=== PATIENT | male | born 1995 | race Hispanic/Latino ===

== ENCOUNTER 2017-04-27 23:47 | Observation (INO) | payer BC ==
[~2017-04-27] VITALS: Ht 160 cm; Wt 123.4 kg
[2017-04-28] MEDS ORDERED: SODIUM CHLORIDE 0.9% 1000ML 1,000 ML IV ONE ×2 (00:32→05:40)
[2017-04-28 01:08] LABS: BASOPHILS % (AUTO) 0.6 % (0.0-5.0); EOSINOPHILS % (AUTO) 0.9 % (0.0-8.0); HEMATOCRIT 48.5 % (42-54); MEAN CORPUSCULAR HEMOGLOBIN 29.6 pg (27.0-33.0); MEAN CORPUSCULAR HGB CONC 32.8 g/dL (32.0-36.0); MEAN CORPUSCULAR VOLUME 90.2 fL (79-99); MONOCYTES % (AUTO) 13.6 % (3.0-13.0); NEUTROPHILS % (AUTO) 72.9 % (40.0-77.0); PLATELET COUNT (AUTO) 226 K/uL (130-400); RED BLOOD CELL COUNT(AUTO) 5.38 MIL/uL (4.50-6.20); WHITE BLOOD COUNT (AUTO) 10.3 K/uL (4.8-10.8)
[2017-04-28 01:09] LABS: INFLUENZA TYPE A NEGATIVE FOR TYPE A (NEG); INFLUENZA TYPE B NEGATIVE FOR TYPE B (NEG)
[2017-04-28 01:28] LABS: CREATININE 1.2 mg/dL (0.5-1.5); POTASSIUM 3.2 mmol/L (3.5-5.1)
[2017-04-28 03:20] LABS: APPEARANCE,URINE Clear (CLEAR); BILIRUBIN,URINE Negative (NEGATIVE); COLOR,URINE Dark Yellow (YELLOW); GLUCOSE, URINE (UA) Negative (NEGATIVE); KETONES,URINE 40 mg/dL (NEGATIVE); LEUKOCYTE ESTERASE ,URINE Negative (NEGATIVE); NITRATE,URINE Negative (NEGATIVE); OCCULT BLOOD,URINE Negative (NEGATIVE); PH,URINE 5.5 (5.0-8.0); PROTEIN,URINE Negative (NEGATIVE)
[2017-04-28] MEDS ORDERED: LIDOCAINE HCL 1% 20 ML VIAL ONE (05:09)
[2017-04-28 07:25] LABS: APPEARANCE,CSF CLEAR (CLEAR); COLOR,CSF PINK (COLORLESS); CSF TUBE NUMBER 1; WHITE BLOOD CELL1,CSF 0 CMM (0-5)
[2017-04-28 07:26] LABS: APPEARANCE2,CSF CLEAR (CLEAR); COLOR2,CSF COLORLESS (COLORLESS); CSF 2ND TUBE NUMBER 3; RED BLOOD CELL1,CSF 595 CMM (0-0)
[2017-04-28 07:29] LABS: GLUCOSE, CSF 62 mg/dL (40-70); TOTAL PROTEIN, CSF 33 mg/dL (15-45)
[2017-04-28 07:30] LABS: CSF TOTAL VOLUME 3.5 mL
[2017-04-28] MEDS ORDERED: KETOROLAC TROMETHAMINE 30MG/ML ONE (08:11)
[2017-04-28] MEDS ORDERED: GUAIFENESIN-DM 200/20 MG 10 ML PO PRN (08:45)
[2017-04-28] MEDS ORDERED: ACETAMINOPHEN 325 MG TAB PO PRN (08:45)
[2017-04-28] MEDS ORDERED: MAG HYDROX/AL HYDROX/SIMETH ES 30 ML SUSP UDCUP PO PRN (08:45)
[2017-04-28] MEDS ORDERED: ONDANSETRON HCL 4 MG/2 ML VIAL IV PRN (08:45)
[2017-04-28] MEDS ORDERED: LACTULOSE 20 GM/30 ML UDCUP PO PRN (08:45)
[2017-04-28] MEDS ORDERED: PANTOPRAZOLE 40 MG/VIAL IVP SCH (09:00)
[2017-04-28] MEDS ORDERED: OSELTAMIVIR PHOSPHATE 75 MG CAP ONE (09:35)
[2017-04-28] MEDS ORDERED: POTASSIUM CHLORIDE 20 MEQ ERTAB PO ONE (09:55)
[2017-04-28] MEDS ORDERED: OSELTAMIVIR PHOSPHATE 75 MG CAP PO SCH (10:01)
[2017-04-28] MEDS ORDERED: ACETAMINOPHEN-CODEINE 300/30MG TAB ONE (14:07)
[2017-04-28 20:42] VITALS: BP 143/88
[2017-04-28] MEDS: SODIUM CHLORIDE 0.9% 1000ML 1,000 ML IV SCH (21:56)
[2017-04-28] MEDS: OSELTAMIVIR PHOSPHATE 75 MG CAP PO SCH (21:56)
[2017-04-28] MEDS: MORPHINE SULFATE 2 MG/ML 1ML SYG IVP PRN (21:59)
[2017-04-28] MEDS ORDERED: FLUD0.1T2 PO (22:19)
[2017-04-28] MEDS ORDERED: PRED5TAB PO (22:19)
[2017-04-28 23:00] VITALS: BP 118/53
[2017-04-29 03:00] VITALS: BP 105/52
[2017-04-29 04:37] LABS: HEMATOCRIT 39.5 % (42-54); MEAN CORPUSCULAR HEMOGLOBIN 29.8 pg (27.0-33.0); MEAN CORPUSCULAR HGB CONC 34.1 g/dL (32.0-36.0); MEAN CORPUSCULAR VOLUME 87.3 fL (79-99); PLATELET COUNT (AUTO) 166 K/uL (130-400); RED BLOOD CELL COUNT(AUTO) 4.52 MIL/uL (4.50-6.20); RED CELL DISTRIBUTION WIDTH 13.7 % (11.0-15.5)
[2017-04-29 05:04] LABS: CREATININE 0.8 mg/dL (0.5-1.5); POTASSIUM 3.4 mmol/L (3.5-5.1)
[2017-04-29] MEDS: MORPHINE SULFATE 2 MG/ML 1ML SYG IVP PRN ×3 (05:44→20:48)
[2017-04-29 07:00] VITALS: BP 125/61
[2017-04-29] MEDS: OSELTAMIVIR PHOSPHATE 75 MG CAP PO SCH ×2 (08:27→20:47)
[2017-04-29] MEDS: PANTOPRAZOLE SODIUM 40 MG TABLET.DR PO SCH (08:27)
[2017-04-29] MEDS: SODIUM CHLORIDE 0.9% 1000ML 1,000 ML IV SCH ×2 (08:28→20:48)
[2017-04-29] MEDS: ACETAMINOPHEN-CODEINE 300/30MG TAB PO PRN (08:28)
[2017-04-29 10:55] VITALS: BP 118/83
[2017-04-29] MEDS: ACETAMINOPHEN 325 MG TAB PO PRN ×2 (11:01→20:47)
[2017-04-29] MEDS ORDERED: GADOBENATE DIMEGLUMINE 20 ML IV ONE (12:31)
[2017-04-29] MEDS: DOXYCYCLINE 100MG+NS 250ML 250 ML IV SCH ×2 (13:14→23:19)
[2017-04-29] MEDS: PROMETHAZINE HCL 25 MG/ML 1ML AMPULE IM SCH (13:14)
[2017-04-29 15:15] VITALS: BP 126/54
[2017-04-29 15:29] LABS: AMPHET/METH SCREEN,URINE NEGATIVE (NEGATIVE); BARBITURATE SCREEN, URINE NEGATIVE (NEGATIVE); BENZODIAZEPINES SCREEN,URINE NEGATIVE (NEGATIVE); CANNABINOID SCREEN,URINE NEGATIVE (NEGATIVE); COCAINE SCREEN,URINE NEGATIVE (NEGATIVE); OPIATE SCREEN,URINE POSITIVE (NEGATIVE); PHENCYCLIDINE SCREEN,URINE NEGATIVE (NEGATIVE)
[2017-04-29 19:56] VITALS: BP 132/65
[2017-04-29] MEDS: PREDNISONE 5 MG TABLET PO SCH (20:21)
[2017-04-29 23:52] VITALS: BP 119/72
[2017-04-30 03:43] VITALS: BP 110/68
[2017-04-30 07:18] VITALS: BP 90/54
[2017-04-30] MEDS: PANTOPRAZOLE SODIUM 40 MG TABLET.DR PO SCH (07:59)
[2017-04-30] MEDS: PREDNISONE 5 MG TABLET PO SCH (07:59)
[2017-04-30] MEDS: SODIUM CHLORIDE 0.9% 1000ML 1,000 ML IV SCH ×2 (08:00→10:33)
[2017-04-30] MEDS: OSELTAMIVIR PHOSPHATE 75 MG CAP PO SCH (08:00)
[2017-04-30] MEDS ORDERED: FLUDROCORTISONE ACETATE 0.1 MG TABLET PO SCH (09:00)
[2017-04-30 11:01] VITALS: BP 110/72
[2017-04-30] MEDS ORDERED: OSEL75 PO (11:07)
[2017-04-30] MEDS ORDERED: DOXY100T2 PO (11:07)
[2017-04-30] MEDS: PROMETHAZINE HCL 25 MG/ML 1ML AMPULE IM SCH (11:30)
[2017-04-30] MEDS: ACETAMINOPHEN-CODEINE 300/30MG TAB PO PRN (12:24)
[2017-05-06 13:16] LABS: ROCKY MT SPOTTED FEVER IGG <1:64 (Neg:<1:64); TYPHUS FEVER AB IGG <1:64 (Neg:<1:64)
== END 2017-04-30 13:05 | disposition home or self-care (01) ==
LOC: EDH 23:47 → EDHIP 04-28 08:33 → 3CH 04-28 19:31
PROVIDERS: ADMIT Family Medicine; ATTEND Family Medicine
DX: R51 Headache (principal); B34.9 Viral infection, unspecified
CPT/HCPCS: 36415 ×3; 70450; 70544; 70547; 70551; 71010; 76705; 80048; 80053; 80305; 81003; 82945; 84157; 85025; 85027; 86000; 86308; 87040 ×2; 87071; 87147; 87205; 87252; 87804 ×2; 87880; 89051 ×2; 96365; 96366; 96372; 96375; 96376; 99285; A9577; C9113; G0378 ×53; J1885; J2550; J3490; J7030 ×6; J7512

== ENCOUNTER 2017-05-01 14:47 | Emergency (ER) | payer BC ==
[~2017-05-01 14:47] MED LIST: DOXY100T2 PO; FLUD0.1T2 PO; OSEL75 PO; PRED5TAB PO
[2017-05-01] MEDS ORDERED: ACETAMINOPHEN EXTRA STRENGTH 500 MG TABLET ONE (15:10)
[2017-05-01] MEDS ORDERED: DIAZEPAM 5 MG TABLET ONE (15:11)
[2017-05-01 15:14] LABS: APPEARANCE,URINE SL CLOUDY (CLEAR); BILIRUBIN,URINE NEGATIVE (NEGATIVE); COLOR,URINE YELLOW (YELLOW); GLUCOSE, URINE (UA) NEGATIVE (NEGATIVE); KETONES,URINE NEGATIVE (NEGATIVE); LEUKOCYTE ESTERASE ,URINE NEGATIVE (NEGATIVE); NITRATE,URINE NEGATIVE (NEGATIVE); OCCULT BLOOD,URINE NEGATIVE (NEGATIVE); PH,URINE 8.5 (5.0-8.0); PROTEIN,URINE NEGATIVE (NEGATIVE)
[2017-05-01 15:22] LABS: AMPHET/METH SCREEN,URINE NEGATIVE (NEGATIVE); BARBITURATE SCREEN, URINE NEGATIVE (NEGATIVE); BENZODIAZEPINES SCREEN,URINE NEGATIVE (NEGATIVE); CANNABINOID SCREEN,URINE NEGATIVE (NEGATIVE); COCAINE SCREEN,URINE NEGATIVE (NEGATIVE); OPIATE SCREEN,URINE NEGATIVE (NEGATIVE); PHENCYCLIDINE SCREEN,URINE NEGATIVE (NEGATIVE)
[2017-05-01 15:28] LABS: AMORPHOUS SEDIMENT,UR Few /LPF (None Seen); BACTERIA,URINE Few /HPF (None Seen); MUCUS,URINE Few LPF (None Seen); RBC,URINE None Seen /HPF (0-1); SQUAMOUS EPITHELIAL CELL,UR 0-2 /LPF (0-2); WBC,URINE 0-1 /HPF (0-1)
== END 2017-05-01 16:20 | disposition home or self-care (01) ==
LOC: EDH 14:47
DX: R51 Headache (principal)
CPT/HCPCS: 80305; 81001

== ENCOUNTER 2018-03-20 21:40 | Inpatient (IN) | payer BC, OTHER ==
[~2018-03-20] VITALS: Ht 160 cm; Wt 127.5 kg
[2018-03-20 22:02] LABS: APPEARANCE,URINE CLEAR (CLEAR); BILIRUBIN,URINE NEGATIVE (NEGATIVE); COLOR,URINE YELLOW (YELLOW); GLUCOSE, URINE (UA) NEGATIVE (NEGATIVE); KETONES,URINE NEGATIVE (NEGATIVE); LEUKOCYTE ESTERASE ,URINE NEGATIVE (NEGATIVE); NITRATE,URINE NEGATIVE (NEGATIVE); OCCULT BLOOD,URINE NEGATIVE (NEGATIVE); PH,URINE 5.5 (5.0-8.0); PROTEIN,URINE NEGATIVE (NEGATIVE); UROBILINOGEN,URINE 0.2 mg/dL (0.2-1.0)
[2018-03-20 22:09] LABS: AMPHET/METH SCREEN,URINE NEGATIVE (NEGATIVE); BARBITURATE SCREEN, URINE NEGATIVE (NEGATIVE); BENZODIAZEPINES SCREEN,URINE NEGATIVE (NEGATIVE); CANNABINOID SCREEN,URINE NEGATIVE (NEGATIVE); COCAINE SCREEN,URINE NEGATIVE (NEGATIVE); OPIATE SCREEN,URINE NEGATIVE (NEGATIVE); PHENCYCLIDINE SCREEN,URINE NEGATIVE (NEGATIVE)
[2018-03-20 22:11] LABS: BASOPHILS % (AUTO) 0.5 % (0.0-5.0); EOSINOPHILS % (AUTO) 2.4 % (0.0-8.0); HEMATOCRIT 47.3 % (42-54); LYMPHOCYTES % (AUTO) 14.2 % (21.0-51.0); MEAN CORPUSCULAR HEMOGLOBIN 29.5 pg (27.0-33.0); MEAN CORPUSCULAR HGB CONC 34.7 g/dL (32.0-36.0); MONOCYTES % (AUTO) 5.2 % (3.0-13.0); NEUTROPHILS % (AUTO) 77.7 % (40.0-77.0); PLATELET COUNT (AUTO) 214 K/uL (130-400); RED BLOOD CELL COUNT(AUTO) 5.56 MIL/uL (4.50-6.20); RED CELL DISTRIBUTION WIDTH 13.3 % (11.0-15.5); WHITE BLOOD COUNT (AUTO) 11.3 K/uL (4.8-10.8)
[2018-03-20 22:24] LABS: CREATININE 0.9 mg/dL (0.5-1.5); POTASSIUM 3.4 mmol/L (3.5-5.1)
[2018-03-20 22:28] LABS: ALBUMIN 3.7 g/dL (3.5-5.0); BILIRUBIN,TOTAL 0.8 mg/dL (0.2-1.0)
[2018-03-20] MEDS ORDERED: SODIUM CHLORIDE 0.9% 1000ML 1,000 ML IV ONE (22:33)
[2018-03-20] MEDS ORDERED: ACETAMINOPHEN EXTRA STRENGTH 500 MG TABLET ONE (22:33)
[2018-03-20 22:58] LABS: RAPID GROUP A STREP NEGATIVE (NEGATIVE)
[2018-03-21] VITALS (7 sets, daily range): BP systolic 113–128; BP diastolic 55–67
[2018-03-21] MEDS ORDERED: SODIUM CHLORIDE 0.9% 1000ML 1,000 ML IV ONE (00:31)
[2018-03-21] MEDS ORDERED: VANCOMYCIN 1GM+NS 250ML 500 ML IV ONE (00:41)
[2018-03-21] MEDS: SODIUM CHLORIDE 0.9% 1000ML 1,000 ML IV SCH ×4 (00:51→20:51)
[2018-03-21] MEDS ORDERED: DiphenhydrAMINE HCL 50 MG/ML VIAL ONE (01:00)
[2018-03-21] MEDS ORDERED: VANCOMYCIN PROTOCOL PER PHARMACY IV PRN (01:00)
[2018-03-21] MEDS ORDERED: LIDOCAINE HCL-MPF 1% 2ML VIAL IVP PRN ×2 (01:00→17:15)
[2018-03-21] MEDS ORDERED: ONDANSETRON HCL MDV 20ML 2 MG/ML VIAL IV PRN (01:00)
[2018-03-21] MEDS ORDERED: MORPHINE SULFATE 2 MG/ML 1ML SYG IVP PRN (01:00)
[2018-03-21] MEDS ORDERED: MAGNESIUM 2GM PREMIX 50ML 50 ML IV PRN (01:00)
[2018-03-21] MEDS ORDERED: POTASSIUM CHLORIDE 20MEQ/100ML 100 ML IV PRN ×2 (01:00→17:15)
[2018-03-21 01:43] LABS: CRP QUANTITATIVE 19.3 mg/L (0.00-9.0); MAGNESIUM 1.6 mg/dL (1.80-2.40)
[2018-03-21] MEDS: METRONIDAZOLE 500MG/100ML BAG 100 ML IV SCH ×3 (03:54→17:07)
[2018-03-21 05:34] LABS: BASOPHILS % (AUTO) 0.4 % (0.0-5.0); EOSINOPHILS % (AUTO) 3.3 % (0.0-8.0); HEMATOCRIT 39.3 % (42-54); LYMPHOCYTES % (AUTO) 25.4 % (21.0-51.0); MEAN CORPUSCULAR HEMOGLOBIN 28.6 pg (27.0-33.0); MEAN CORPUSCULAR VOLUME 84.1 fL (79-99); MONOCYTES % (AUTO) 10.4 % (3.0-13.0); NEUTROPHILS % (AUTO) 60.5 % (40.0-77.0); NUCLEATED RED BLOOD CELLS 0.1 % (0.0-0.19); PLATELET COUNT (AUTO) 181 K/uL (130-400); RED BLOOD CELL COUNT(AUTO) 4.68 MIL/uL (4.50-6.20); WHITE BLOOD COUNT (AUTO) 7.9 K/uL (4.8-10.8)
[2018-03-21 05:43] LABS: ALBUMIN 2.8 g/dL (3.5-5.0); BILIRUBIN,TOTAL 0.7 mg/dL (0.2-1.0); CREATININE 0.9 mg/dL (0.5-1.5); MAGNESIUM 1.5 mg/dL (1.80-2.40); POTASSIUM 3.3 mmol/L (3.5-5.1); TOTAL PROTEIN, SERUM 6.2 g/dL (6.0-8.3)
[2018-03-21] MEDS ORDERED: COMPOUND IV REFRIGERATED 1 EACH IVSOLN MISC PRN (06:30)
[2018-03-21] MEDS: VANCOMYCIN 2 GM in SODIUM CHLORIDE 0.9% 500ML 500 ML IV SCH ×2 (08:53→20:11)
[2018-03-21] MEDS: FAMOTIDINE/PF 20 MG/2 ML VIAL IV SCH ×2 (08:53→20:11)
[2018-03-21] MEDS: ACETAMINOPHEN 325 MG TAB PO PRN (08:54)
[2018-03-21] MEDS: ENOXAPARIN SODIUM 40 MG/0.4 ML SYRINGE SQ SCH (08:56)
[2018-03-21] MEDS ORDERED: METHYLPREDNISOLONE SOD SUCC 40MG/ML 1ML IVP SCH ×2 (09:00)
[2018-03-21] MEDS ORDERED: POTASSIUM CHLORIDE 10% ELIXIR 20 MEQ/15 ML UDCUP PO PRN (17:15)
[2018-03-21] MEDS: POTASSIUM CHLORIDE 20 MEQ ERTAB PO PRN ×2 (17:43→20:11)
[2018-03-22] MEDS: METRONIDAZOLE 500MG/100ML BAG 100 ML IV SCH ×3 (00:33→17:03)
[2018-03-22] MEDS: SODIUM CHLORIDE 0.9% 1000ML 1,000 ML IV SCH ×2 (00:35→17:03)
[2018-03-22 04:00] VITALS: BP 112/52
[2018-03-22 06:09] LABS: BASOPHILS % (AUTO) 0.3 % (0.0-5.0); EOSINOPHILS % (AUTO) 0.2 % (0.0-8.0); HEMATOCRIT 38.1 % (42-54); LYMPHOCYTES % (AUTO) 21.1 % (21.0-51.0); MEAN CORPUSCULAR HEMOGLOBIN 29.4 pg (27.0-33.0); MEAN CORPUSCULAR HGB CONC 34.6 g/dL (32.0-36.0); MEAN CORPUSCULAR VOLUME 84.9 fL (79-99); MONOCYTES % (AUTO) 8.6 % (3.0-13.0); NEUTROPHILS % (AUTO) 69.8 % (40.0-77.0); PLATELET COUNT (AUTO) 212 K/uL (130-400); RED BLOOD CELL COUNT(AUTO) 4.49 MIL/uL (4.50-6.20); RED CELL DISTRIBUTION WIDTH 12.9 % (11.0-15.5); WHITE BLOOD COUNT (AUTO) 8.3 K/uL (4.8-10.8)
[2018-03-22 06:16] LABS: CREATININE 0.7 mg/dL (0.5-1.5); POTASSIUM 3.6 mmol/L (3.5-5.1)
[2018-03-22] MEDS: POTASSIUM CHLORIDE 20 MEQ ERTAB PO PRN ×2 (06:30→18:20)
[2018-03-22 07:49] VITALS: BP 115/53
[2018-03-22] MEDS: VANCOMYCIN 2 GM in SODIUM CHLORIDE 0.9% 500ML 500 ML IV SCH ×2 (09:00→21:22)
[2018-03-22] MEDS: FAMOTIDINE/PF 20 MG/2 ML VIAL IV SCH ×2 (09:44→21:19)
[2018-03-22] MEDS: PREDNISONE 5 MG TABLET PO SCH ×2 (09:44→21:19)
[2018-03-22] MEDS: FLUDROCORTISONE ACETATE 0.1 MG TABLET PO SCH (09:44)
[2018-03-22] MEDS: ENOXAPARIN SODIUM 40 MG/0.4 ML SYRINGE SQ SCH (09:45)
[2018-03-22] MEDS: ACETAMINOPHEN 325 MG TAB PO PRN (10:03)
[2018-03-22 11:00] VITALS: BP 105/55
[2018-03-22 16:00] VITALS: BP 117/57
[2018-03-22 19:25] VITALS: BP 125/75
[2018-03-22 23:15] VITALS: BP 112/56
[2018-03-23] VITALS (8 sets, daily range): BP systolic 111–177; BP diastolic 45–99
[2018-03-23] MEDS: METRONIDAZOLE 500MG/100ML BAG 100 ML IV SCH (02:12)
[2018-03-23 04:33] LABS: BASOPHILS % (AUTO) 0.7 % (0.0-5.0); EOSINOPHILS % (AUTO) 1.9 % (0.0-8.0); HEMATOCRIT 38.3 % (42-54); LYMPHOCYTES % (AUTO) 32.4 % (21.0-51.0); MEAN CORPUSCULAR HEMOGLOBIN 28.7 pg (27.0-33.0); MEAN CORPUSCULAR HGB CONC 33.7 g/dL (32.0-36.0); MEAN CORPUSCULAR VOLUME 85.1 fL (79-99); MONOCYTES % (AUTO) 7.9 % (3.0-13.0); NEUTROPHILS % (AUTO) 57.1 % (40.0-77.0); NUCLEATED RED BLOOD CELLS 0.1 % (0.0-0.19); PLATELET COUNT (AUTO) 199 K/uL (130-400); RED CELL DISTRIBUTION WIDTH 13.1 % (11.0-15.5); WHITE BLOOD COUNT (AUTO) 7.6 K/uL (4.8-10.8)
[2018-03-23 04:41] LABS: CREATININE 0.8 mg/dL (0.5-1.5); POTASSIUM 3.8 mmol/L (3.5-5.1)
[2018-03-23] MEDS ORDERED: METRONIDAZOLE 500 MG TABLET PO SCH (06:45)
[2018-03-23] MEDS: FLUDROCORTISONE ACETATE 0.1 MG TABLET PO SCH (09:19)
[2018-03-23] MEDS: PREDNISONE 5 MG TABLET PO SCH ×2 (09:19→20:18)
[2018-03-23] MEDS: ENOXAPARIN SODIUM 40 MG/0.4 ML SYRINGE SQ SCH (09:19)
[2018-03-23] MEDS: METRONIDAZOLE 500 MG TABLET PO SCH ×2 (09:19→15:27)
[2018-03-23] MEDS: FAMOTIDINE/PF 20 MG/2 ML VIAL IV SCH ×2 (09:19→20:18)
[2018-03-23] MEDS ORDERED: LEVO500T2 PO (12:33)
[2018-03-23] MEDS ORDERED: METR500T4 PO (12:33)
[2018-03-23] MEDS ORDERED: LACTOBACILLUS RHAMNOSUS GG 1 EACH CAP.SPRINK PO SCH (13:00)
[2018-03-23] MEDS: LEVOFLOXACIN 500 MG TABLET PO SCH (15:04)
[2018-03-24 03:00] VITALS: BP 137/70
[2018-03-24] MEDS: METRONIDAZOLE 500 MG TABLET PO SCH ×2 (03:23→10:30)
[2018-03-24 07:48] VITALS: BP 118/56
[2018-03-24] MEDS: ENOXAPARIN SODIUM 40 MG/0.4 ML SYRINGE SQ SCH (09:00)
[2018-03-24] MEDS: LEVOFLOXACIN 500 MG TABLET PO SCH (10:30)
[2018-03-24] MEDS: PREDNISONE 5 MG TABLET PO SCH (10:30)
[2018-03-24] MEDS: FLUDROCORTISONE ACETATE 0.1 MG TABLET PO SCH (10:30)
[2018-03-24] MEDS: FAMOTIDINE/PF 20 MG/2 ML VIAL IV SCH (10:31)
== END 2018-03-24 11:55 | disposition home or self-care (01) | DRG 392 ==
LOC: EDH 21:40 → EDHIP 21:41 → OBSVTOIN 21:41 → 4BH 03-21 01:32
PROVIDERS: ADMIT Hospitalist; ATTEND Hospitalist
DX: A09 Infectious gastroenteritis and colitis, unspecified (principal); Z68.42 Body mass index [BMI] 45.0-49.9, adult; E27.40 Unspecified adrenocortical insufficiency; K58.0 Irritable bowel syndrome with diarrhea; A08.19 Acute gastroenteropathy due to other small round viruses; E87.6 Hypokalemia; E66.01 Morbid (severe) obesity due to excess calories; Z83.3 Family history of diabetes mellitus
CPT/HCPCS: 36415; 74176; 80048; 80053; 80202; 80305; 81003; 83630; 83690; 83735; 85025; 85651; 86140; 87040; 87046; 87324; 87507; 87804; 87880; 93005; J1200; J1650; J2920; J3370; J3490; J7030; J7040; J7512

== ENCOUNTER 2018-06-23 07:33 | Emergency (ER) | payer SELFPAY ==
[~2018-06-23 07:33] MED LIST changes: -DOXY100T2 PO; +LEVO500T2 PO; +METR-172 PO; -OSEL75 PO
[2018-06-23] MEDS ORDERED: ONDANSETRON HCL 4 MG/2 ML VIAL ONE (07:51)
[2018-06-23] MEDS ORDERED: HYDROCORTISONE SOD SUCCINATE 100 MG/2 ML VIAL ONE (07:51)
[2018-06-23] MEDS ORDERED: SODIUM CHLORIDE 0.9% 1000ML 1,000 ML IV ONE ×2 (07:51→09:29)
[2018-06-23 07:56] LABS: BASOPHILS % (AUTO) 0.3 % (0.0-5.0); EOSINOPHILS % (AUTO) 2.9 % (0.0-8.0); HEMATOCRIT 44.2 % (42-54); LYMPHOCYTES % (AUTO) 18.7 % (21.0-51.0); MEAN CORPUSCULAR HEMOGLOBIN 29.2 pg (27.0-33.0); MEAN CORPUSCULAR VOLUME 85.9 fL (79-99); MONOCYTES % (AUTO) 5.4 % (3.0-13.0); NEUTROPHILS % (AUTO) 72.7 % (40.0-77.0); PLATELET COUNT (AUTO) 202 K/uL (130-400); RED BLOOD CELL COUNT(AUTO) 5.15 MIL/uL (4.50-6.20); RED CELL DISTRIBUTION WIDTH 13.1 % (11.0-15.5); WHITE BLOOD COUNT (AUTO) 11.7 K/uL (4.8-10.8)
[2018-06-23 08:22] LABS: AMPHET/METH SCREEN,URINE NEGATIVE (NEGATIVE); BARBITURATE SCREEN, URINE NEGATIVE (NEGATIVE); BENZODIAZEPINES SCREEN,URINE NEGATIVE (NEGATIVE); CANNABINOID SCREEN,URINE NEGATIVE (NEGATIVE); COCAINE SCREEN,URINE NEGATIVE (NEGATIVE); OPIATE SCREEN,URINE NEGATIVE (NEGATIVE); PHENCYCLIDINE SCREEN,URINE NEGATIVE (NEGATIVE)
[2018-06-23 08:29] LABS: CREATININE 0.8 mg/dL (0.5-1.5); POTASSIUM 3.4 mmol/L (3.5-5.1)
[2018-06-23 08:33] LABS: ALBUMIN 3.6 g/dL (3.5-5.0); BILIRUBIN,DIRECT 0.1 mg/dL (0.0-0.3); BILIRUBIN,TOTAL 0.8 mg/dL (0.2-1.0); TOTAL PROTEIN, SERUM 7.8 g/dL (6.0-8.3)
[2018-06-23] MEDS ORDERED: ACETAMINOPHEN EXTRA STRENGTH 500 MG TABLET ONE (10:05)
[2018-06-23] MEDS ORDERED: DICYCLOMINE HCL 20 MG TAB ONE (10:41)
== END 2018-06-23 11:08 | disposition home or self-care (01) ==
LOC: EDH 07:33
DX: K52.9 Noninfective gastroenteritis and colitis, unspecified (principal); E86.0 Dehydration; Z79.899 Other long term (current) drug therapy
CPT/HCPCS: 36415; 74021; 80048; 80076; 80305; 82550; 83690; 85025; 96361; 96365; 99284; J1720; J2405; J7030 ×2; 96374

== ENCOUNTER 2018-07-03 17:26 | Emergency (ER) | payer SELFPAY ==
[2018-07-03] MEDS ORDERED: ACETAMINOPHEN 325 MG TAB ONE (18:06)
== END 2018-07-03 20:04 | disposition home or self-care (01) ==
LOC: EDH 17:26
DX: S13.8XXA Sprain of joints and ligaments of other parts of neck, initial encounter (principal); S09.8XXA Other specified injuries of head, initial encounter; R10.84 Generalized abdominal pain; V89.0XXA Person injured in unspecified motor-vehicle accident, nontraffic, initial encounter; Y93.89 Activity, other specified; Y92.89 Other specified places as the place of occurrence of the external cause; Y99.8 Other external cause status
CPT/HCPCS: 70450; 72125; 74176

== ENCOUNTER 2018-08-23 09:49 | Emergency (ER) | payer SELFPAY ==
[2018-08-23] MEDS ORDERED: ONDANSETRON HCL 4 MG/2 ML VIAL ONE (10:17)
[2018-08-23 10:18] LABS: BASOPHILS % (AUTO) 0.3 % (0.0-5.0); EOSINOPHILS % (AUTO) 3.2 % (0.0-8.0); HEMATOCRIT 43.9 % (42-54); LYMPHOCYTES % (AUTO) 17.9 % (21.0-51.0); MEAN CORPUSCULAR HEMOGLOBIN 29.3 pg (27.0-33.0); MEAN CORPUSCULAR VOLUME 86.3 fL (79-99); MONOCYTES % (AUTO) 5.7 % (3.0-13.0); NEUTROPHILS % (AUTO) 72.9 % (40.0-77.0); PLATELET COUNT (AUTO) 203 K/uL (130-400); RED BLOOD CELL COUNT(AUTO) 5.08 MIL/uL (4.50-6.20); RED CELL DISTRIBUTION WIDTH 13.1 % (11.0-15.5); WHITE BLOOD COUNT (AUTO) 9.2 K/uL (4.8-10.8)
[2018-08-23 10:28] LABS: CREATININE 0.8 mg/dL (0.5-1.5); POTASSIUM 3.3 mmol/L (3.5-5.1)
[2018-08-23 10:32] LABS: ALBUMIN 3.8 g/dL (3.5-5.0); BILIRUBIN,TOTAL 0.5 mg/dL (0.2-1.0); TOTAL PROTEIN, SERUM 7.9 g/dL (6.0-8.3)
[2018-08-23] MEDS ORDERED: KETOROLAC TROMETHAMINE 15MG/ML ONE (10:52)
[2018-08-23 12:14] LABS: APPEARANCE,URINE CLEAR (CLEAR); BILIRUBIN,URINE NEGATIVE (NEGATIVE); COLOR,URINE YELLOW (YELLOW); GLUCOSE, URINE (UA) NEGATIVE (NEGATIVE); KETONES,URINE NEGATIVE (NEGATIVE); LEUKOCYTE ESTERASE ,URINE NEGATIVE (NEGATIVE); NITRATE,URINE NEGATIVE (NEGATIVE); OCCULT BLOOD,URINE NEGATIVE (NEGATIVE); PROTEIN,URINE NEGATIVE (NEGATIVE); UROBILINOGEN,URINE 0.2 mg/dL (0.2-1.0)
[2018-08-23 12:23] LABS: AMPHET/METH SCREEN,URINE NEGATIVE (NEGATIVE); BARBITURATE SCREEN, URINE NEGATIVE (NEGATIVE); BENZODIAZEPINES SCREEN,URINE NEGATIVE (NEGATIVE); CANNABINOID SCREEN,URINE NEGATIVE (NEGATIVE); COCAINE SCREEN,URINE NEGATIVE (NEGATIVE); OPIATE SCREEN,URINE NEGATIVE (NEGATIVE); PHENCYCLIDINE SCREEN,URINE NEGATIVE (NEGATIVE)
== END 2018-08-23 12:56 | disposition home or self-care (01) ==
LOC: EDH 09:49
DX: K52.9 Noninfective gastroenteritis and colitis, unspecified (principal)
CPT/HCPCS: 36415; 80053; 80305; 81003; 83690; 85025; 96361; 96374; 96375; 99285; J1885; J2405

== ENCOUNTER 2019-03-18 10:06 | Emergency (ER) | payer OTHER ==
[2019-03-18] MEDS ORDERED: IBUPROFEN 800 MG TAB ONE (10:40)
[2019-03-18] MEDS ORDERED: DEXAMETHASONE SOD PHOSPHATE 10MG/ML 1ML VIAL ONE (10:40)
== END 2019-03-18 12:36 | disposition home or self-care (01) ==
LOC: EDH 10:06
DX: J02.8 Acute pharyngitis due to other specified organisms (principal); B97.89 Other viral agents as the cause of diseases classified elsewhere
CPT/HCPCS: 87880; 96372; 99283; J1100

== ENCOUNTER 2019-12-25 21:24 | Inpatient (IN) | payer OTHER, SELFPAY ==
[~2019-12-25] VITALS: Ht 160 cm; Wt 122.9 kg
[2019-12-25] MEDS ORDERED: DEXAMETHASONE SOD PHOSPHATE 10MG/ML 1ML VIAL ONE (21:55)
[2019-12-25] MEDS ORDERED: ONDANSETRON HCL 4 MG/2 ML VIAL ONE (21:55)
[2019-12-25] MEDS ORDERED: CEFTRIAXONE SODIUM 1 GM ONE (21:55)
[2019-12-25] MEDS: LACTATED RINGERS 1000ML 1,000 ML IV SCH (21:58)
[2019-12-25] MEDS ORDERED: ONDANSETRON HCL 4 MG/2 ML VIAL IV PRN (22:00)
[2019-12-25] MEDS ORDERED: ZOLPIDEM TARTRATE 5 MG TAB PO PRN (22:00)
[2019-12-25] MEDS ORDERED: NITROGLYCERIN 0.4 MG SL TAB SL PRN (22:00)
[2019-12-25] MEDS ORDERED: GUAIFENESIN-DM 200/20 MG 10 ML PO PRN (22:00)
[2019-12-25] MEDS: UNASYN 3GM+NS 100ML 3 GM/100 ML IV.KIT IV SCH (22:00)
[2019-12-25] MEDS ORDERED: MORPHINE SULFATE 4 MG/1ML SYG IV PRN (22:00)
[2019-12-25] MEDS ORDERED: MORPHINE SULFATE 2 MG/ML 1ML SYG IV PRN (22:00)
[2019-12-25] MEDS ORDERED: LIDOCAINE HCL 2% VISCOUS 30 ML, MAG HYDROX/AL HYDROX/SIMETH 30 ML, BELLADONNA-PHENOBARB... PO PRN ×3 (22:00)
[2019-12-25] MEDS ORDERED: MAG HYDROX/AL HYDROX/SIMETH 30 ML, LIDOCAINE HCL 2% VISCOUS 30 ML, DIPHENHYDRAMINE HCL ... PO PRN ×3 (22:00)
[2019-12-25] MEDS ORDERED: ACETAMINOPHEN 325 MG TAB PO PRN ×2 (22:00)
[2019-12-25] MEDS ORDERED: MAG HYDROX/AL HYDROX/SIMETH ES 30 ML SUSP UDCUP PO PRN (22:00)
[2019-12-25] MEDS ORDERED: DiphenhydrAMINE HCL 50 MG/ML VIAL IV PRN (22:00)
[2019-12-25] MEDS ORDERED: DIPHENHYDRAMINE HCL 25 MG CAPSULE PO PRN (22:00)
[2019-12-25] MEDS ORDERED: LACTULOSE 20 GM/30 ML UDCUP PO PRN (22:00)
[2019-12-25] MEDS ORDERED: KETOROLAC TROMETHAMINE 30MG/ML ONE (22:03)
[2019-12-25 22:09] LABS: BASOPHILS % (AUTO) 0.3 % (0.0-5.0); EOSINOPHILS % (AUTO) 0.2 % (0.0-8.0); HEMATOCRIT 41.4 % (42-54); LYMPHOCYTES % (AUTO) 8.6 % (21.0-51.0); MEAN CORPUSCULAR HEMOGLOBIN 29.2 pg (27.0-33.0); MEAN CORPUSCULAR HGB CONC 34.8 g/dL (32.0-36.0); MONOCYTES % (AUTO) 7.1 % (3.0-13.0); NEUTROPHILS % (AUTO) 83.3 % (40.0-77.0); PLATELET COUNT (AUTO) 219 K/uL (130-400); RED BLOOD CELL COUNT(AUTO) 4.93 MIL/uL (4.50-6.20); RED CELL DISTRIBUTION WIDTH 12.2 % (11.0-15.5); WHITE BLOOD COUNT (AUTO) 22.5 K/uL (4.8-10.8)
[2019-12-25 22:22] LABS: POTASSIUM 3.3 mmol/L (3.5-5.1)
[2019-12-25 22:26] LABS: ALBUMIN 3.7 g/dL (3.5-5.0); BILIRUBIN,TOTAL 1.1 mg/dL (0.2-1.0)
[2019-12-25] MEDS ORDERED: AMPICILLIN SODIUM/SULBACTAM NA 1.5GM VIAL ONE (23:18)
[2019-12-25] MEDS ORDERED: SODIUM CHLORIDE 0.9% 100 ML IV ONE (23:19)
[2019-12-25 23:49] LABS: APPEARANCE,URINE Clear (CLEAR); BILIRUBIN,URINE Small (NEGATIVE); COLOR,URINE Dark Yellow (YELLOW); GLUCOSE, URINE (UA) Negative (NEGATIVE); KETONES,URINE 15 mg/dL (NEGATIVE); LEUKOCYTE ESTERASE ,URINE Trace (NEGATIVE); NITRATE,URINE Negative (NEGATIVE); OCCULT BLOOD,URINE Negative (NEGATIVE); PROTEIN,URINE Trace mg/dL (NEGATIVE)
[2019-12-25 23:58] LABS: RAPID GROUP A STREP POSITIVE (NEGATIVE)
[2019-12-26] VITALS (7 sets, daily range): BP systolic 93–117; BP diastolic 50–73
[2019-12-26 00:13] LABS: BACTERIA,URINE None Seen /HPF (None Seen); MUCUS,URINE Rare LPF (None Seen); RBC,URINE None Seen /HPF (0-1); SQUAMOUS EPITHELIAL CELL,UR Few /HPF (0-2); WBC,URINE 0-1 /HPF (0-1)
[2019-12-26] MEDS ORDERED: POTASSIUM CHLORIDE 10MEQ/100ML 100 ML IV PRN (00:30)
[2019-12-26] MEDS ORDERED: POTASSIUM CHLORIDE 10% ELIXIR 20 MEQ/15 ML UDCUP PO PRN (00:30)
[2019-12-26] MEDS ORDERED: LIDOCAINE HCL-MPF 1% 2ML VIAL IV PRN (00:30)
--- NOTE | 2019-12-26 00:45 | NUR ---
ADMIT PT ADMITTED TO ROOM 317,AAOX3. ADMISSION CARE DONE. ADMISSION DATA BASE UPDATED. HOME MEDS UPDATED. CONTINUED IVF AND IV UNASYN FROM ER, PLACED IN PUMP. ORIENTED TO ROOM AND UNIT. IN FOR MORE CARE AND MANAGEMENT. Addendum: 12/26/19 at 0217 by JOHN CHAMPION RN RN Amended: Links added.
[2019-12-26] MEDS ORDERED: AMPICILLIN SODIUM/SULBACTAM NA 1.5GM VIAL ONE (03:49)
[2019-12-26] MEDS: UNASYN 3GM+NS 100ML 3 GM/100 ML IV.KIT IV SCH (04:00)
--- NOTE | 2019-12-26 04:22 | NUR ---
MEDS UNASYN DOSE CALLED FROM ER [facility]. PT STILL FAIRLY ASLEEP WITH RESPIRATIONS EVEN AND UNLABORED. NO NOTED DISTRESS. KEPT UNDISTURBED FOR NOW. DUE MEDS ADMINISTERED. WILL CONTINUE TO MONITOR.
[2019-12-26] MEDS: LACTATED RINGERS 1000ML 1,000 ML IV SCH ×2 (04:38→05:37)
[2019-12-26 06:19] LABS: BASOPHILS % (AUTO) 0.2 % (0.0-5.0); EOSINOPHILS % (AUTO) 0.3 % (0.0-8.0); HEMATOCRIT 40.6 % (42-54); LYMPHOCYTES % (AUTO) 2.8 % (21.0-51.0); MEAN CORPUSCULAR HEMOGLOBIN 29.5 pg (27.0-33.0); MEAN CORPUSCULAR HGB CONC 34.2 g/dL (32.0-36.0); MEAN CORPUSCULAR VOLUME 86.2 fL (79-99); MONOCYTES % (AUTO) 1.5 % (3.0-13.0); NEUTROPHILS % (AUTO) 94.2 % (40.0-77.0); PLATELET COUNT (AUTO) 219 K/uL (130-400); RED BLOOD CELL COUNT(AUTO) 4.71 MIL/uL (4.50-6.20); RED CELL DISTRIBUTION WIDTH 12.3 % (11.0-15.5); WHITE BLOOD COUNT (AUTO) 22.9 K/uL (4.8-10.8)
[2019-12-26 06:34] LABS: CREATININE 0.8 mg/dL (0.5-1.5); POTASSIUM 3.7 mmol/L (3.5-5.1)
[2019-12-26 06:40] LABS: ALBUMIN 3.1 g/dL (3.5-5.0); BILIRUBIN,TOTAL 0.6 mg/dL (0.2-1.0); MAGNESIUM 1.5 mg/dL (1.80-2.40); PHOSPHORUS 1.4 mg/dL (2.5-4.9); TOTAL PROTEIN, SERUM 7.2 g/dL (6.0-8.3)
[2019-12-26] MEDS ORDERED: PREDNISONE 20 MG TABLET PO SCH (08:00)
[2019-12-26] MEDS ORDERED: LIDOCAINE HCL 2% VISCOUS 30 ML, MAG HYDROX/AL HYDROX/SIMETH 30 ML, DICYCLOMINE HCL 20 MG PO PRN ×3 (08:00)
[2019-12-26] MEDS ORDERED: COMPOUND PO MISCELLANEOUS 1 EACH MISC MISC PRN (08:00)
[2019-12-26 08:01] LABS: HEMOGLOBIN A1C 5.4 % (4.0-6.0)
[2019-12-26] MEDS ORDERED: FLUDROCORTISONE ACETATE 0.1 MG TABLET PO SCH (09:00)
[2019-12-26] MEDS ORDERED: PREDNISONE 5 MG TABLET PO SCH (09:00)
[2019-12-26] MEDS: HYDROCORTISONE SOD SUCCINATE 100 MG/2 ML VIAL IV SCH ×5 (09:00→22:23)
[2019-12-26] MEDS ORDERED: ENOXAPARIN SODIUM 40 MG/0.4 ML SYRINGE SQ SCH (09:00)
[2019-12-26] MEDS ORDERED: MAGNESIUM OXIDE 400 MG TABLET PO SCH (09:45)
[2019-12-26] MEDS: FAMOTIDINE/PF 20 MG/2 ML VIAL IV SCH ×2 (10:05→22:23)
--- NOTE | 2019-12-26 12:09 | NUR ---
CALLED PHARMACY FOR 10 AM ANTIBIOTIC AT 1020 AND 1107 AND 1140 TALKED TO MARINA STATED WAS BEING MADE. CHARGE NURSE MADE AWARE.
[2019-12-26] MEDS: UNASYN 3GM+NS 100ML 100 ML IV SCH ×2 (13:52→22:23)
--- NOTE | 2019-12-26 17:01 | NUR ---
GALI DONE AT BEDSIDE FOR DC PLANNING MET Debby/ JODY BARFIELD, INDEPENDENT, UNINSURED, DRIVES, LIVES WITH MOM AND ADULT SIBLINGS, MOM TO PROVIDE TRANSPORT HOME, STATES GOES TO A CLINIC IN [place] CONNNECTED Debby ADAMS FOR HIS MEDICATIONS. DCP TYLER GARCIA TO FOLLOW Addendum: 12/28/19 at 0805 by CARLO CARTER RN CM Amended: Links added.
[2019-12-26 23:21] LABS: APPEARANCE,URINE Clear (CLEAR); BILIRUBIN,URINE Negative (NEGATIVE); COLOR,URINE Yellow (YELLOW); GLUCOSE, URINE (UA) Negative (NEGATIVE); KETONES,URINE >=80 mg/dL (NEGATIVE); LEUKOCYTE ESTERASE ,URINE Negative (NEGATIVE); NITRATE,URINE Negative (NEGATIVE); OCCULT BLOOD,URINE Negative (NEGATIVE); PH,URINE 5.5 (5.0-8.0); PROTEIN,URINE Negative (NEGATIVE)
--- NOTE | 2019-12-27 00:12 | NUR ---
COVID PCR RESULTS RETURNED NEGATIVE. RECEIVED TELEPHONE RESULTS FROM GURU IN LAB.
[2019-12-27] MEDS: UNASYN 3GM+NS 100ML 100 ML IV SCH ×2 (02:36→05:56)
[2019-12-27 03:40] VITALS: BP 105/56
[2019-12-27 04:23] LABS: BASOPHILS % (AUTO) 0.1 % (0.0-5.0); HEMATOCRIT 38.7 % (42-54); LYMPHOCYTES % (AUTO) 5.7 % (21.0-51.0); MEAN CORPUSCULAR HEMOGLOBIN 29.5 pg (27.0-33.0); MEAN CORPUSCULAR HGB CONC 34.1 g/dL (32.0-36.0); MEAN CORPUSCULAR VOLUME 86.4 fL (79-99); MONOCYTES % (AUTO) 4.4 % (3.0-13.0); NEUTROPHILS % (AUTO) 89.1 % (40.0-77.0); PLATELET COUNT (AUTO) 233 K/uL (130-400); RED BLOOD CELL COUNT(AUTO) 4.48 MIL/uL (4.50-6.20); RED CELL DISTRIBUTION WIDTH 12.6 % (11.0-15.5)
[2019-12-27 04:28] LABS: CREATININE 0.7 mg/dL (0.5-1.5); POTASSIUM 3.5 mmol/L (3.5-5.1)
[2019-12-27 04:33] LABS: BILIRUBIN,TOTAL 0.2 mg/dL (0.2-1.0); MAGNESIUM 1.9 mg/dL (1.80-2.40); PHOSPHORUS 3.4 mg/dL (2.5-4.9); TOTAL PROTEIN, SERUM 7.1 g/dL (6.0-8.3)
[2019-12-27 08:00] VITALS: BP 103/54
[2019-12-27] MEDS ORDERED: AMOXICILLIN/POTASSIUM CLAV 500-125 TABLET PO SCH (08:00)
[2019-12-27] MEDS ORDERED: HYDROCORTISONE SOD SUCCINATE 100 MG/2 ML VIAL IV SCH (09:00)
[2019-12-27] MEDS ORDERED: AMOX-426 PO (09:09)
[2019-12-27] MEDS: FAMOTIDINE/PF 20 MG/2 ML VIAL IV SCH (09:37)
[2019-12-27 11:00] VITALS: BP 104/72
--- NOTE | 2019-12-27 13:30 | NUR ---
DISCHARGE PATIENT GIVEN DISCHARGE INSTRUCTIONS VIA TEACH BACK. 20G PIV TO RIGHT WRIST DISCONTINUED, TIP INTACT. TELE PACK REMOVED AND RETURN TO TELEMETRY. RX GIVEN FOR AUGMENTIN 500-125MG 1 TAB PO TID X 10 DAYS. PATIENT TO CONTINUE PREDNISONE AND FLUDROCORTISONE. FOLLOW UP APPOINTMENT WITH DR. ESTEBAN FOR TOMORROW AT 0930 FOR TONSILLITIS. PATIENT WOULD NEED TO PAY 200.00 FOR OFFICE VISIT DUE TO NO INSURANCE. PATIENT TO MAKE FOLLOW UP APPOINTMENT WITH DR. WARNER. PATIENT STABLE AT THIS TIME. PATIENT WHEELED TO [facility] FOR DISCHARGE BY [facility].
== END 2019-12-27 13:34 | disposition home or self-care (01) | DRG 153 ==
LOC: EDH 21:24 → EDHIP 21:25 → 3CH 23:07
PROVIDERS: ADMIT Internal Medicine; ATTEND Internal Medicine
DX: J03.90 Acute tonsillitis, unspecified (principal); E87.1 Hypo-osmolality and hyponatremia; Z68.42 Body mass index [BMI] 45.0-49.9, adult; N39.0 Urinary tract infection, site not specified; D72.829 Elevated white blood cell count, unspecified; E66.01 Morbid (severe) obesity due to excess calories; E11.9 Type 2 diabetes mellitus without complications; E83.42 Hypomagnesemia; E87.6 Hypokalemia; R13.10 Dysphagia, unspecified; Z20.828 Contact with and (suspected) exposure to other viral communicable diseases; Z79.52 Long term (current) use of systemic steroids; J32.9 Chronic sinusitis, unspecified
CPT/HCPCS: 36415; 70490; 71045; 80053; 81001; 81003; 83036; 83735; 84100; 85025; 86308; 87040; 87088; 87426; 87804; 87880; G0378; J0295; J0696; J1100; J1650; J1720; J1885; J2405; J3490; J7120; U0003

== ENCOUNTER 2020-11-27 12:02 | Emergency (ER) | payer OTHER ==
[~2020-11-27] VITALS: Ht 177.8 cm; Wt 108.9 kg
[~2020-11-27 12:02] MED LIST changes: +AMOX-426 PO; -LEVO500T2 PO; -METR-172 PO
[2020-11-27 12:04] VITALS: BP_SYST 117; BP_SYST 17; BP_DIAS 72
[2020-11-27] MEDS ORDERED: CYCLOBENZAPRINE HCL 10 MG TABLET ONE (12:26)
[2020-11-27] MEDS ORDERED: HYDROCODONE/ACETAMINOPHEN 10/325 MG TAB ONE (12:26)
[2020-11-27] MEDS ORDERED: CYCLOBENZAPRINE HCL 10 MG TABLET PO ONE (12:30)
[2020-11-27] MEDS ORDERED: HYDROCODONE/ACETAMINOPHEN 10/325 MG TAB PO ONE (12:30)
[2020-11-27 13:26] VITALS: BP 120/76
[2020-11-27 14:42] VITALS: BP 124/79
[2020-11-27] MEDS ORDERED: CYCL10 PO (14:49)
[2020-11-27] MEDS ORDERED: NAPR-1180 PO (14:49)
== END 2020-11-27 16:15 | disposition home or self-care (01) ==
LOC: EDH 12:02
DX: S29.012A Strain of muscle and tendon of back wall of thorax, initial encounter (principal); S16.1XXA Strain of muscle, fascia and tendon at neck level, initial encounter; S40.012A Contusion of left shoulder, initial encounter; V49.49XA Driver injured in collision with other motor vehicles in traffic accident, initial encounter; Y93.89 Activity, other specified; Y92.89 Other specified places as the place of occurrence of the external cause; Y99.8 Other external cause status
CPT/HCPCS: 72125; 72128; 73030